=== PATIENT | male | born 1970 | race Caucasian/White ===

== ENCOUNTER 2024-04-08 08:40 | Emergency (ER) | payer OTHER ==
[~2024-04-08] VITALS: Ht 172.7 cm; Wt 93.0 kg
[2024-04-08 08:55] VITALS: BP 130/110; PULSE 95; RESP 18; RESP 20; TEMP 97.9; O2SAT 99
[2024-04-08 09:07] VITALS: BP 130/110; PULSE 95; RESP 20; TEMP 97.9; O2SAT 99
[2024-04-08 09:30] VITALS: BP 160/100; PULSE 83; RESP 18; O2SAT 94
== END 2024-04-08 09:35 | disposition home or self-care (01) ==
LOC: ER 08:40
DX: S99.912A Unspecified injury of left ankle, initial encounter (principal); S99.922A Unspecified injury of left foot, initial encounter; W18.49XA Other slipping, tripping and stumbling without falling, initial encounter; Y93.89 Activity, other specified; Y92.89 Other specified places as the place of occurrence of the external cause; Y99.0 Civilian activity done for income or pay
CPT/HCPCS: 99284; 73610-LT; 73630-LT